=== PATIENT | female | born 1955 | race Caucasian/White ===

== ENCOUNTER 2016-11-06 16:08 | Observation (INO) | payer OTHER ==
[2016-11-06] MEDS ORDERED: TYLENOL 325 MG PO PRN (16:17)
[2016-11-06] MEDS ORDERED: Sodium Chloride 0.9% 500 ML 500 ML IV SCH (16:30)
[2016-11-06] MEDS: Dextrose 5% -0.45 NaCl 1000 ML 1,000 ML IV SCH (16:40)
[2016-11-06] MEDS: PROTONIX 40 MG IV IV SCH (16:40)
[2016-11-06 17:07] LABS: BASOPHIL % 0.1 % (0.0-0.4); Granulocytes % 69.6 % (36.0-66.0); INR 1.02 (0.8-3.0); Lymphocytes % 25.5 % (24.0-44.0); Mean Cell Volume 96.6 fl (78-100); Mean Corpuscular Hemoglobin 31.5 pg (26-32); Mean Platelet Volume 10.2 fl (6-9.5); Monocytes % 4.8 % (0.0-12.0); PROTIME 11.4 SECONDS (9.95-12.35); Platelet Count 259 K/mm3 (150-450); Red Blood Count 4.47 M/mm3 (4.1-5.4); Red Cell Distribution Width 14.9 % (11.5-14.0); White Blood Count 8.9 K/mm3 (4.0-10.5)
[2016-11-06 17:10] LABS: PTT 29.2 SECONDS (25.3-37.0)
[2016-11-06 17:50] LABS: ALKALINE PHOSPHATASE 70 U/L (46-116); ANION GAP 14.7 MEQ/L (5-15); BILIRUBIN,TOTAL 0.4 mg/dL (0.2-1.0); BLOOD UREA NITROGEN 9 mg/dL (9-20); CHLORIDE 99 mEq/L (98-107); Carbon Dioxide 28.2 mEq/L (21-32); Glucose 106 MG/DL (70-110); Potassium 3.5 mEq/L (3.5-5.1); SGOT/AST 17 U/L (15-37); SGPT/ALT 13 U/L (12-78); SODIUM 138 mEq/L (136-145); Total Protein 7.7 gm/dL (6.4-8.2)
[2016-11-06] MEDS ORDERED: Golytely Solution 4000 ML PO ONE (22:00)
[2016-11-07] MEDS: Dextrose 5% -0.45 NaCl 1000 ML 1,000 ML IV SCH ×2 (04:31→17:08)
--- NOTE | 2016-11-07 08:37 | XRAY ---
Indication: Vomiting, diarrhea, and rectal bleeding. Multiple contiguous axial images obtained through the abdomen and pelvis using 80 cc Isovue 370 contrast only. Comparison: None Lung bases demonstrates bibasilar dependent atelectasis and right costophrenic angle calcified granuloma. In the posterior left lung base there is a incompletely visualized subpleural irregular masslike opacity measuring 14 mm in greatest axial dimension. Heart is not enlarged. Noncontrasted stomach and bowel loops appear nonobstructed. There is moderate colonic circumferential wall thickening from the splenic flexure to the proximal sigmoid with stranding favoring colitis. Tiny left paracolic gutter fluid presumed reactive. No walled off fluid collection or free air. Minimal sigmoid diverticulosis. Normal air-filled appendix. In the inferior right lobe of the liver, there is a 6 mm cyst. Remaining liver, gallbladder, pancreas, spleen, adrenal glands, kidneys, ureters, and bladder appear unremarkable. Mild aortic calcifications. No AAA or pathologic retroperitoneal lymphadenopathy. Osseous structures intact with minimal degenerative changes throughout the spine. Impression: 1. Descending and proximal sigmoid colitis with tiny free fluid. No walled off fluid collection or free air. 2. Sigmoid diverticulosis and subcentimeter hepatic cyst. 3. Incompletely visualized left lung base irregular masslike opacity. Comparison studies would be of benefit. If not available, CT chest is recommended to further evaluate. CT DI 10.38
--- NOTE | 2016-11-07 08:46 | CONS ---
CONSULT DATE: 11/06/2016 This patient is seen for Dr. Patel. The consult came in on Dr. Patel's call. HISTORY: A 61 year-old female apparently on Sunday had abdominal pain, diarrhea, some blood in the stool associated with nausea and vomiting at that time. She has had history of spastic colon for years. She only had a small amount of blood when she wipes since then. She has not had any major bowel movements in the past day or two. She was a direct admit by Dr. Adan. She has not had CT scan. She does have hemoglobin of 14.1, white blood cell count 8.9. PAST MEDICAL HISTORY: She denies any other chronic illnesses to me. PAST SURGICAL HISTORY: Conization of her cervix 30 years ago. She denies any recent colonoscopy. She had colonoscopy 13 years ago when she was age 48. She had a couple of polyps at that time. She has not had any follow up since then. MEDICATIONS: None currently on a daily basis at home. ALLERGIES: CODEINE, PENICILLIN, PREDNISONE. FAMILY HISTORY: Bladder tumor and hypertension. Negative for inflammatory bowel disease or colon cancer. SOCIAL HISTORY: Half pack per day smoker. No alcohol abuse. REVIEW OF SYSTEMS: Twelve systems reviewed pertinent for as noted above. No chest pain or palpitations. She is not having any significant abdominal pain on my visit currently. Other systems negative or noncontributory as above and per admission assessment. No current significant rectal bleeding. No fever, chills, nausea or vomiting. PHYSICAL EXAMINATION: GENERAL: No acute distress. Afebrile. Temperature 98.3F on the chart, blood pressure 84/60 earlier. Pulse 84 currently. HEENT: Sclera nonicteric. NECK: No JVD. CHEST: Equal excursion, nonlabored breathing. IMPRESSION: History of hematochezia, abdominal pain, nausea, vomiting, diarrhea. Whether she had episode of colitis, diverticulitis versus inflammatory bowel disease versus neoplasia or other etiology is unclear. Either way she is in no acute distress at this point. Her hemoglobin is 14.1, white blood cell count was 8.9. No significant shift. Granulocytes 69%. International normalized ratio 1.02. She denies any blood thinner use. Either way I feel she needs a CT scan of abdomen and pelvis to rule out acute diverticulitis episode. If so, she needs just medical management, follow up colonoscopy in a few weeks. Otherwise, if she is deemed to have colitis or some other mass, no evidence of diverticula could consider colonoscopy this admission versus outpatient. Either way no emergent surgery necessary. Will await CT scan of abdomen and pelvis. If that does not show any evidence of acute diverticulitis or free air or any other issues such as that will see about doing colonoscopy while she is in the hospital here, possibly tomorrow p.m. if her bowel prep is clear. This patient was seen for Dr. Patel who was on awake counselor for our group today.
[2016-11-07] MEDS: PROTONIX 40 MG IV IV SCH (09:41)
--- NOTE | 2016-11-07 13:27 | XRAY ---
Indication: Nodule on recent CT abdomen. Comparison: None PA/lateral chest hyperinflated with a few calcified granulomas. No focal infiltrate, consolidation, or large effusion. Heart is not enlarged. Bony thorax intact. Impression: Nonacute hyperinflated chest with evidence for old granulomatous disease.
[2016-11-07] MEDS ORDERED: Sodium Chloride 0.9% 1000 ML 1,000 ML ONE (14:17)
[2016-11-07] MEDS ORDERED: Sodium Chloride 0.9% 1000 ML 1,000 ML IV SCH (14:30)
[2016-11-07 16:20] VITALS: BP 116/54; PULSE 85; O2SAT 97
--- NOTE | 2016-11-07 17:04 | XRAY ---
Indication: Lung nodule on recent CT abdomen. Multiple contiguous axial images obtained through the chest without contrast as ordered. Comparison: None Discoid atelectasis/scarring seen in both lung bases. The posterior left lower lobe atelectasis/scarring is associated with a 14 mm noncalcified nodularity corresponding to the recent CT abdomen finding. Posterior left upper lobe and right posterior gutter calcified granulomas. No infiltrate, consolidation, or effusion. Heart is not enlarged. Aorta is minimally arteriosclerotic without aneurysm. Subcarinal and bilateral hilar calcified nodes. No pathologic mediastinal lymphadenopathy. Bony thorax intact. CT abdomen reported separately. Impression: 1. The left base 14 mm nodularity is associated with discoid atelectasis/scarring and probably benign. Recommend follow-up per Fleischner guidelines. 2. No acute cardiopulmonary abnormalities. 3. Evidence for old granulomatous disease. CTDI 8.11
[2016-11-07] MEDS ORDERED: DIPRIVAN 200 MG/20 ML IV ONE (18:28)
[2016-11-07] MEDS ORDERED: Versed 2 MG/2 ML Injection IV ONE (18:28)
--- NOTE | 2016-11-08 07:46 | OP ---
SURGERY DATE/TIME: 11/07/2016 5377 The patient was seen for Dr. Patel who was consulted when he was cotton factor. PREOPERATIVE DIAGNOSIS: History of rectal bleed. History of thickened colon on CT scan, prior history of polyps. POSTOPERATIVE DIAGNOSES: 1) Colitis left colon. 2) Diverticulosis. 3) Somewhat poor bowel prep limiting the exam. 4) Small internal and external hemorrhoids. 5) Small raised lesion versus hyperplastic lesion or early polyp sigmoid colon and rectum. PROCEDURES: 1) Colonoscopy to terminal ileum. 2) Retrograde ileoscopy. 3) Cold biopsy left random cold biopsy left colon colitis. 4) Hot biopsy removal of small raised lesion sigmoid colon. 5) Hot biopsy removal of small raised lesion versus early polyp or hyperplastic lesion rectum. SURGEON: Dr. Brian Maya. ANESTHESIA: MAC. ESTIMATED BLOOD LOSS: Minimal. INDICATIONS: As noted above. Risks and benefits explained in detail and not limited to and consent obtained. DESCRIPTION OF PROCEDURE AND FINDINGS: The patient is taken to the endoscopy room. After official time out and no disagreement with planned procedure, MAC anesthesia introduced. Digital rectal exam did not reveal any rectal masses. She did have some small internal and external hemorrhoids and small perianal chronic hemorrhoid versus benign appearing cyst. No evidence of any obvious masses. Scope carefully introduced. Somewhat poor prep. Liquidy semisolid stool limiting the exam. The scope is slowly and carefully navigated through the tortuous colon. Positioned on her back. With external pressure the scope was able to be passed around the ascending colon and finally up to terminal ileum and then retrograde ileoscopy was performed. The last couple feet of the ileum were grossly unremarkable. No signs of any inflammatory bowel disease. The scope is slowly and carefully withdrawn. Again the prep did limit the exam for potential small lesions. Otherwise there were no signs of any large polyps, masses or obstructing lesions. In the left colon, descending colon down to sigmoid colon there appeared to be some thickened erythema consistent with colitis consistent with CT scan changes. Random cold biopsies were taken to evaluate for colitis. There were no obvious gross mass in this area. Just past this area in the sigmoid colon she did have some diverticulosis. There was a small, little raised lesion whether this is simple hyperplastic lesion or early polyp is removed with hot biopsy forceps and another couple in the rectum were also removed. Raised lesion versus hyperplastic lesions or early polyps removed with hot biopsy forceps with brief bursts of cautery. Good hemostasis noted. Otherwise she had some internal and external hemorrhoids. Again poor prep limiting the exam. There were no signs of any obvious active bleeding or old fresh blood in the colon other than the minimal amount in the biopsy areas. The scope is withdrawn. The patient tolerated the procedure well. Findings discussed with the family out in the waiting area. Inflammatory bowel disease and GI study was ordered. Otherwise continue medical management. DISPOSITION: She is discharged. We will see her back in the office the following week to go over results. This patient was seen for Dr. Patel who was cotton factor when the consult came in.
[2016-11-08] MEDS ORDERED: PNEUMOVAX 23 IM ONE (10:00)
== END 2016-11-07 18:29 | disposition home or self-care (01) ==
LOC: MED SURG 16:08
PROVIDERS: ADMIT Internal Medicine; ATTEND Internal Medicine
PROC: 0DBG8ZX Excision of Left Large Intestine, Via Natural or Artificial Opening Endoscopic, Diagnostic (ICD-10-PCS; principal; 2016-11-07)
PROC: 0DBN8ZX Excision of Sigmoid Colon, Via Natural or Artificial Opening Endoscopic, Diagnostic (ICD-10-PCS; 2016-11-07)
PROC: 0DBP8ZX Excision of Rectum, Via Natural or Artificial Opening Endoscopic, Diagnostic (ICD-10-PCS; 2016-11-07)
PROC: 0DJD8ZZ Inspection of Lower Intestinal Tract, Via Natural or Artificial Opening Endoscopic (ICD-10-PCS; 2016-11-07)
DX: K52.9 Noninfective gastroenteritis and colitis, unspecified (principal); K57.90 Diverticulosis of intestine, part unspecified, without perforation or abscess without bleeding; K64.4 Residual hemorrhoidal skin tags; K64.8 Other hemorrhoids; K63.9 Disease of intestine, unspecified; D12.5 Benign neoplasm of sigmoid colon; K62.1 Rectal polyp; Z86.010 Personal history of colon polyps
CPT/HCPCS: 00810; 36415; 71020; 71250; 74177; 80053; 85025; 85610; 85730; 88305; 90732; 93005; 93268; G0378; J2250; J2704; A9270-GY